=== PATIENT | female | born 1960 | race Caucasian/White ===

== ENCOUNTER 2025-01-11 22:45 | Emergency (ER) | payer OTHER | END 2025-01-11 23:40 | disposition home or self-care (01) | LOC: SUPCPDRO 22:45 → FB.ED 22:45 | DX: S70.361A Insect bite (nonvenomous), right thigh, initial encounter (principal); W57.XXXA Bitten or stung by nonvenomous insect and other nonvenomous arthropods, initial encounter | CPT/HCPCS: 99283; A9270-GY ==